=== PATIENT | male | born 1990 | race African-American/Black ===

== ENCOUNTER 2019-09-15 22:28 | Emergency (ER) | payer OTHER ==
[2019-09-15 22:32] VITALS: BP 95/53; PULSE 76; TEMP 98.5; BMI 24.4
[2019-09-15] MEDS ORDERED: IBUPROFEN 600 MG TABLET (FP) PO ONE ×2 (23:55→23:56)
--- NOTE | 2019-09-16 00:15 | PDOC ---
History of Present Illness - General Chief Complaint: Cold Symptoms Stated Complaint: FLU SYMPTOMS Time Seen by Provider: 09/15/19 23:43 History Source: Patient Exam Limitations: No Limitations Past History - Past Medical History Allergies/Adverse Reactions: Allergies Allergy/AdvReac Type Severity Reaction Status Date / Time No Known Allergies Allergy Verified 09/15/19 22:32 Home Medications: Ambulatory Orders NK [No Known Home Medication] 02/04/16 COPD: No - Psycho Social/Smoking Cessation Hx Smoking History: Never smoked Hx Alcohol Use: Yes (SOCIAL) Drug/Substance Use Hx: No Substance Use Type: None *Physical Exam - Vital Signs Last Vital Signs Temp Pulse Resp BP Pulse Ox 98.5 F 76 18 95/53 L 95 09/15/19 22:29 09/15/19 22:29 09/15/19 22:29 09/15/19 22:09/15/19 22:29 - Physical Exam General Appearance: No: Apparent Distress HEENT: positive: Normal Voice, TMs Normal, Pharyngeal Erythema, Nasal Congestion. negative: Muffled/Hoarse voice, Tonsillar Exudate, Tonsillar Erythema, Rhinorrhea Respiratory/Chest: positive: Lungs Clear, Normal Breath Sounds. negative: Respiratory Distress Cardiovascular: positive: Regular Rhythm, Regular Rate, S1, S2. negative: Murmur Gastrointestinal/Abdominal: positive: Normal Bowel Sounds, Soft. negative: Tender, Distended, Guarding, Rebound Integumentary: positive: Normal Color Neurologic: positive: Alert ED Treatment Course - Medications Given in the ED: ED Medications Discontinued Medications Generic Name Dose Route Start Last Admin Trade Name Freq PRN Reason Stop Dose Admin Ibuprofen 600 mg 09/15/19 23:55 09/15/19 23:59 Motrin - PO 09/15/19 23:56 600 mg ONCE ONE Administration Medical Decision Making - Medical Decision Making 20-year-old male with no significant past medical history presents with throat pain, runny nose, congestion, mild bilateral ear pain, mild dry cough for 4 days. Patient endorses recent travel to [place] and he came back yesterday. However states he started feeling sick before he left to [place]. Denies fever , shortness of breath, chest pain, abdominal, nausea, vomiting, diarrhea, sick contacts. Has only tried using Robitussin for symptoms which is not helping much. Has not taken anti-any antipyretics today Likely viral pharyngitis No concern for strep based on exam Afebrile, well appearing Care discussed Given Motrin for now stable for dc 09/16/19 00:10 Discharge - Discharge Information Problems reviewed: Yes Clinical Impression/Diagnosis: Viral pharyngitis Condition: Stable Disposition: HOME - Admission No - Additional Discharge Information Prescription Drug Monitoring Program (I-STOP) results: I-STOP not reviewed - Follow up/Referral - Patient Discharge Instructions Patient Printed Discharge Instructions: DI for Viral Pharyngitis Additional Instructions: Thank you for choosing [facility]. It was a pleasure taking care of you. You have viral infection Recommend rest and hydration Do salt water gargles daily Lemon honey tea and cough drops may also help Use Nedi-Pot daily and Flonase nasal spray (2 sprays in each nostril) to help with congestion Follow-up with your doctor in 2 days Return to the Emergency Department if your symptoms worsen or persist or have other concerning symptoms. - Post Discharge Activity
== END 2019-09-16 00:20 | disposition home or self-care (01) ==
LOC: JER 22:28
DX: J02.9 Acute pharyngitis, unspecified (principal); B97.89 Other viral agents as the cause of diseases classified elsewhere
CPT/HCPCS: 99282-25